=== PATIENT | female | born 1965 | race Hispanic/Latino ===

== ENCOUNTER 2022-05-15 05:43 | Day surgery (SDC) | payer OTHER ==
[2022-05-13 10:32] LABS: BASOPHILS % (AUTO) 1.2 % (0.0-5.0); EOSINOPHILS % (AUTO) 3.4 % (0.0-8.0); LYMPHOCYTES % (AUTO) 24.1 % (21.0-51.0); MEAN CORPUSCULAR HEMOGLOBIN 28.8 pg (27.0-33.0); MEAN CORPUSCULAR HGB CONC 32.6 g/dL (32.0-36.0); MEAN CORPUSCULAR VOLUME 88.2 fL (79-99); MONOCYTES % (AUTO) 6.9 % (3.0-13.0); PLATELET COUNT (AUTO) 165 K/uL (130-400); RED BLOOD CELL COUNT(AUTO) 4.31 MIL/uL (4.00-5.50); RED CELL DISTRIBUTION WIDTH 14.7 % (11.0-15.5); WHITE BLOOD COUNT (AUTO) 8.2 K/uL (4.8-10.8)
[2022-05-13 10:37] LABS: APPEARANCE,URINE TURBID (CLEAR); BILIRUBIN,URINE NEGATIVE (NEGATIVE); COLOR,URINE YELLOW (YELLOW); GLUCOSE, URINE (UA) 200 mg/dL (NEGATIVE); KETONES,URINE NEGATIVE (NEGATIVE); LEUKOCYTE ESTERASE ,URINE 500 Leu/uL (NEGATIVE); NITRATE,URINE NEGATIVE (NEGATIVE); OCCULT BLOOD,URINE MODERATE (NEGATIVE); PROTEIN,URINE 600 mg/dL (NEGATIVE); UROBILINOGEN,URINE 0.2 mg/dL (0.2-1.0)
[2022-05-13 10:46] LABS: INR 0.96 (0.85-1.15); PROTHROMBIN TIME 10.5 SEC (9.6-11.6)
[2022-05-13 10:48] LABS: PARTIAL THROMBOPLASTIN TIME 28.8 SEC (26.3-35.5)
[2022-05-13 10:53] LABS: CREATININE 4.5 mg/dL (0.5-1.5); POTASSIUM 3.5 mmol/L (3.5-5.1)
[2022-05-13 11:00] LABS: BACTERIA,URINE RARE /HPF (None Seen); SQUAMOUS EPITHELIAL CELL,UR MANY /HPF (0-2); WBC,URINE TNTC /HPF (0-1); YEAST,URINE BUDDING FEW /HPF (None Seen)
[2022-05-13 11:10] LABS: B-TYPE NATRIURETIC PEPTIDE 27 pg/mL (0-100)
[2022-05-14 12:02] VITALS: BP 178/83
[2022-05-15] VITALS (10 sets, daily range): BP systolic 130–160; BP diastolic 64–80
[~2022-05-15] VITALS: Ht 154.9 cm; Wt 79.4 kg
[~2022-05-15 05:43] MED LIST: ACET-66 PO; AMLO-258 PO; ATOR40TA71 PO; ATRO2DRO OP; CEFTRIAXONE 1G VIAL IVP SCH; INSU100I26 SQ; OFLO5DRO OP; PRED5DRO25 OP; SEVE800T7 PO; SITA50TA PO; VITAD50000 PO
[2022-05-15] MEDS ORDERED: 0.9%NACL 1000ML 1,000 ML IV ONE (06:19)
[2022-05-15] MEDS ORDERED: CEFTRIAXONE 1G VIAL ONE (06:20)
[2022-05-15] MEDS ORDERED: BIVALIRUDIN 250 MG/VIAL IV ONE (07:14)
[2022-05-15] MEDS ORDERED: NITROGLYCERIN 50MG VIAL ONE (07:14)
[2022-05-15] MEDS ORDERED: IOHEXOL 350 MG/ML 100ML INFUS..BTL IV ONE (07:14)
[2022-05-15] MEDS ORDERED: LIDOCAINE HCL-MPF 2% 10ML AMP IJ ONE (07:14)
[2022-05-15] MEDS ORDERED: MIDAZOLAM HCL 1 MG/ML 2ML VIAL ONE (07:15)
[2022-05-15] MEDS ORDERED: FENTANYL CITRATE PF 50 MCG/1 ML 2ML VIAL ONE (07:15)
[2022-05-15] MEDS ORDERED: IOHEXOL-350 50ML VIAL IV ONE (07:54)
[2022-05-15] MEDS ORDERED: NITROGLYCERIN 0.4 MG SL TAB SL PRN (08:00)
[2022-05-15] MEDS ORDERED: DEXTROSE 50%-WATER 50 ML DISP.SYRIN IV PRN (08:00)
[2022-05-15] MEDS ORDERED: GLUCAGON 1MG KIT 1 MG ML IM PRN (08:00)
[2022-05-15] MEDS ORDERED: METOPROLOL TARTRATE 1 MG/ML 5ML VIAL IV PRN (08:00)
[2022-05-15] MEDS ORDERED: INSULIN HUMULIN R 100 UNIT/ML 3ML SQ SCH (11:30)
== END 2022-05-15 14:05 | disposition home or self-care (01) ==
LOC: DAH 05:43
PROVIDERS: ATTEND Internal Medicine Cardiovascular Disease
DX: I25.119 Atherosclerotic heart disease of native coronary artery with unspecified angina pectoris (principal); I25.5 Ischemic cardiomyopathy; E11.22 Type 2 diabetes mellitus with diabetic chronic kidney disease; I13.2 Hypertensive heart and chronic kidney disease with heart failure and with stage 5 chronic kidney disease, or end stage renal disease; I50.42 Chronic combined systolic (congestive) and diastolic (congestive) heart failure; N18.6 End stage renal disease; E78.49 Other hyperlipidemia; E66.9 Obesity, unspecified; Z99.2 Dependence on renal dialysis; Z98.890 Other specified postprocedural states; Z82.49 Family history of ischemic heart disease and other diseases of the circulatory system; Z83.3 Family history of diabetes mellitus; Z80.9 Family history of malignant neoplasm, unspecified; Z83.438 Family history of other disorder of lipoprotein metabolism and other lipidemia; Z68.32 Body mass index [BMI] 32.0-32.9, adult
CPT/HCPCS: 80048; 83880; 85025; 85610; 85730; 87088; 81001; 36415; 71045; 93005; 93458; 87077; 87186; 82948 ×2; C1894 ×2; C1760; Q9965; J3010; J7030; J0696; J2250; J1644; J3490 ×2; Q9967 ×2; A4215; A4222; A4221; A4663; A4216; A4606; A4223 ×3; 99156; 99157; J0583

== ENCOUNTER 2022-07-22 10:02 | Day surgery (SDC) | payer OTHER ==
[2022-07-21 16:21] LABS: MEAN CORPUSCULAR HEMOGLOBIN 27.8 pg (27.0-33.0); MEAN CORPUSCULAR HGB CONC 32.4 g/dL (32.0-36.0); MEAN CORPUSCULAR VOLUME 85.9 fL (79-99); RED BLOOD CELL COUNT(AUTO) 3.96 MIL/uL (4.00-5.50); RED CELL DISTRIBUTION WIDTH 13.6 % (11.0-15.5); WHITE BLOOD COUNT (AUTO) 8.5 K/uL (4.8-10.8)
[2022-07-21 16:36] LABS: CREATININE 3.9 mg/dL (0.5-1.5); INR 0.93 (0.85-1.15); POTASSIUM 3.9 mmol/L (3.5-5.1); PROTHROMBIN TIME 10.2 SEC (9.6-11.6)
[2022-07-21 16:38] LABS: PARTIAL THROMBOPLASTIN TIME 25.1 SEC (26.3-35.5)
[2022-07-21 16:50] VITALS: BP 171/75
[~2022-07-22] VITALS: Ht 152.4 cm; Wt 77.1 kg
[2022-07-22] VITALS (16 sets, daily range): BP systolic 114–167; BP diastolic 48–79
[~2022-07-22 10:02] MED LIST changes: +BRIM5DRO21 OS; -CEFTRIAXONE 1G VIAL IVP SCH
[2022-07-22] MEDS ORDERED: 0.9% NACL 500ML IV.SOLN 500 ML IV ONE (10:12)
[2022-07-22] MEDS: CEFAZOLIN SODIUM 2 GM VIAL IVPB SCH ×2 (11:02→11:52)
[2022-07-22] MEDS ORDERED: MIDAZOLAM HCL 1 MG/ML 5ML VIAL ONE (11:42)
[2022-07-22] MEDS ORDERED: FENTANYL CITRATE PF 50 MCG/1 ML 2ML VIAL ONE (11:43)
[2022-07-22] MEDS ORDERED: ROCURONIUM 10MG/1ML SYR 10 MG/ML ML ONE (11:43)
[2022-07-22] MEDS ORDERED: PROPOFOL 10 MG/ML 20ML VIAL IV ONE (11:43)
[2022-07-22] MEDS ORDERED: LIDOCAINE PF 100MG/5ML (2%) SYRINGE 5ML ONE (11:44)
[2022-07-22] MEDS ORDERED: DEXAMETHASONE SOD PHOSPHATE 10MG/ML 1ML VIAL ONE (11:59)
[2022-07-22] MEDS ORDERED: ONDANSETRON 4MG INJ ONE ×2 (11:59→14:37)
[2022-07-22] MEDS ORDERED: PROTAMINE SULFATE 10 MG/ML 5 ML VIAL ONE (13:21)
[2022-07-22] MEDS ORDERED: GLYCOPYRROLATE 1 MG/5 ML SYRINGE ONE (13:45)
[2022-07-22] MEDS ORDERED: NEOSTIGMINE 5MG/5ML SYR IV ONE (13:46)
[2022-07-22] MEDS ORDERED: MEPERIDINE-PF 25 MG/ML SYG ONE (14:38)
[2022-07-22] MEDS ORDERED: METOCLOPRAMIDE 10 MG/2 ML VIAL ONE (14:53)
== END 2022-07-22 16:25 | disposition home or self-care (01) ==
LOC: DAH 10:02
PROVIDERS: ATTEND Thoracic Surgery (Cardiothoracic Vascular Surgery)
DX: N18.6 End stage renal disease (principal); E11.22 Type 2 diabetes mellitus with diabetic chronic kidney disease; I12.0 Hypertensive chronic kidney disease with stage 5 chronic kidney disease or end stage renal disease; Z99.2 Dependence on renal dialysis; Z79.899 Other long term (current) drug therapy
CPT/HCPCS: 80048; 85027; 85610; 85730; 86850; 86900; 86901; 87426; 36415 ×2; 71045; 93005; 36819; 84132; 84703; 82948 ×2; A6260; A4663; A6207; J7030; A4215 ×2; A4452; J7040; J3010; J3490; J1100; J2710; J2001; J2720; J2250; J2704; J2405 ×2; J2175; J2765; J1644; J0690; A6446; G0168; A4649; C1713 ×2; A4223; A4222; A4221